=== PATIENT | female | born 1970 | race Caucasian/White ===

== ENCOUNTER 2020-06-02 08:40 | Emergency (ER) | payer SELFPAY ==
[~2020-06-02] VITALS: Ht 157.5 cm; Wt 106.6 kg
[~2020-06-02 08:40] MED LIST: AMOXICILLIN875 MG PO; CITALOPRAM HBR40 MG PO; COZAAR50 MG PO; NORCO 10-325 T1 EACH PO; NORCO 5-325 TA1 EACH PO; OMEPRAZOLE20 MG PO; PROBIOTIC1 EAC1 PO
--- OUTSIDE RECORDS SUMMARY | 2020-06-02 08:42 | XMS ---
PreManage Notification: DONNA AREVALO Security Sld Teacher Events No recent Security Events currently on file CRITERIA MET - [facility] - [facility] - 2 Visits in 30 Days CARE PROVIDERS Smitha Barker Community Health Worker 11/19/2018-Current Wendy Voss PHONE: [phone] BARBARA MIRAMONTES Physician Coding Director Current PHONE: [phone] Addie has no Care Guidelines for this patient. E[facility] VISIT COUNT (12 MO.) [address] [place] [address] TOTAL 6 NOTE: Visits indicate total known visits. ED/UCC VISIT TRACKING (12 MO.) 06/02/2020 08:41 [facility] TYPE: Emergency COMPLAINT: - LEFT FLANK PAIN 05/20/2020 17:34 [facility] TYPE: Emergency DIAGNOSES: - CHEST PAIN, HEADACHE, FALL - Dizziness and giddiness 03/21/2020 00:27 [facility] [place] TYPE: Emergency DIAGNOSES: - Calculus of kidney - POSS KIDNEY STONE 11/12/2019 11:46 [facility] TYPE: Emergency DIAGNOSES: - blood in urine - Cystitis, unspecified with hematuria - Calculus of kidney 08/13/2019 12:20 [facility] [place] TYPE: Emergency DIAGNOSES: - R HIP PAIN - Pain in right hip 07/01/2019 07:41 [facility] [place] TYPE: Emergency DIAGNOSES: - Right lower quadrant pain - LOWER R SIDE PAIN INPATIENT VISIT TRACKING (12 MO.) No inpatient visits to display in this time frame [email or web address]
[2020-06-02] MEDS ORDERED: HYDROCHLOROTH12.5 MG PO (08:59)
[2020-06-02] MEDS ORDERED: ZOFRAN4 MG PO ×2 (13:38→13:48)
[2020-06-02] MEDS ORDERED: MORPHINE SULFAT15 MG PO (13:38)
== END 2020-06-02 13:45 | disposition home or self-care (01) ==
LOC: ED 08:40
DX: N83.02 Follicular cyst of left ovary (principal); Z87.891 Personal history of nicotine dependence; Z88.2 Allergy status to sulfonamides; Z87.442 Personal history of urinary calculi; Z79.899 Other long term (current) drug therapy
CPT/HCPCS: 74176; 76830; 76856; 80053; 81001; 84703; 85025; 96374; 96375; 96376; 99284-25; J1170; J1885; J2405; J7030